=== PATIENT | male | born 1975 | race Two or more races ===

== ENCOUNTER 2019-01-30 10:39 | Inpatient (IN) | payer OTHER ==
[2019-01-30 11:05] VITALS: BMI 21.7
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
[2019-01-30] MEDS ORDERED: MENTHOL/PHENOL 1 EACH UD MM PRN (11:27)
[2019-01-30] MEDS ORDERED: MAGNESIUM CITRATE 300 ML BOTTLE PO PRN (11:27)
[2019-01-30] MEDS ORDERED: hydrOXYzine PAMOATE 25 MG CAPSULE (FP) PO PRN (11:27)
[2019-01-30] MEDS ORDERED: ACETAMINOPHEN 325 MG TABLET (FP) PO PRN (11:27)
[2019-01-30] MEDS ORDERED: BISMUTH SUBSALICYLATE 262 MG/15 ML BTL PO PRN (11:27)
[2019-01-30] MEDS ORDERED: LORazepam 1 MG TABLET PO PRN (11:27)
[2019-01-30] MEDS ORDERED: MAGNESIUM HYDROX 2400MG/30ML ORAL SUSPENSION 30 ML CUP PO PRN (11:27)
[2019-01-30] MEDS ORDERED: MAG HYDROX/AL HYDROX/SIMETH 30 ML UNIT-DOSE CUP PO PRN (11:27)
[2019-01-30] MEDS ORDERED: METHADONE HCL 10 MG TABLET PO SCH (11:30)
[2019-01-30] MEDS ORDERED: METHADONE HCL 40 MG DISPERSABLE TABLET ONE (12:23)
[2019-01-30] MEDS ORDERED: METHADONE HCL 10 MG TABLET ONE (12:23)
[2019-01-30] MEDS: METHADONE 80 MG, METHADONE 10 MG PO SCH (12:30)
[2019-01-30] MEDS: LORazepam 2 MG TABLET PO SCH ×3 (12:30→22:33)
[2019-01-30 15:55] LABS: HEMATOCRIT 40.2 % (35.4-49); HEMOGLOBIN 13.5 GM/dL (11.7-16.9); MCH 32.3 pg (25.7-33.7); MCHC 33.5 g/dl (32.0-35.9); MEAN CELL VOLUME 96.3 fl (80-96); MEAN PLT VOLUME 8.5 fl (7.5-11.1); PLATELET COUNT 171 K/MM3 (134-434); RBC 4.18 M/mm3 (4.00-5.60); RDW 14.3 % (11.9-15.9); WHITE BLOOD COUNT 5.6 K/mm3 (4.0-10.0)
[2019-01-30 16:09] LABS: ALBUMIN 3.8 g/dl (3.4-5.0); BILIRUBIN,TOTAL 0.3 mg/dL (0.2-1); BLOOD UREA NITROGEN 10.3 mg/dL (7-18); CALCIUM 8.9 mg/dL (8.5-10.1); CREATININE 0.7 mg/dL (0.55-1.3); POTASSIUM 3.5 mmol/L (3.5-5.1); TOT PROT 7.4 g/dl (6.4-8.2)
[2019-01-30] MEDS: IBUPROFEN 400 MG TABLET (FP) PO PRN (17:13)
[2019-01-30] MEDS: THIAMINE HCL 100 MG TABLET (FP) PO SCH (22:33)
[2019-01-31] MEDS ORDERED: METHADONE HCL 10 MG TABLET ONE (04:18)
[2019-01-31] MEDS ORDERED: METHADONE HCL 40 MG DISPERSABLE TABLET ONE (04:19)
[2019-01-31] MEDS: LORazepam 2 MG TABLET PO SCH ×4 (06:35→22:31)
[2019-01-31] MEDS: METHADONE 80 MG, METHADONE 10 MG PO SCH (06:35)
[2019-01-31] MEDS: PRENATAL VITAMINS W/ FOLIC ACID TABLET (FP) PO SCH (10:53)
[2019-01-31] MEDS: NICOTINE 14 MG/24 HOURS TOPICAL PATCH TD SCH (10:54)
--- NOTE | 2019-01-31 11:26 | PN ---
S CIWA - CIWA Score Nausea/Vomitin-Mild Nausea/No Vomiting Muscle Tremors: 2 Anxiety: 2 Agitation: 2 Paroxysmal Sweats: No Perspiration Orientation: 0-Oriented Tacttile Disturbances: 1-Very Mild Itch/Numbness Auditory Disturbances: 0-None Visual Disturbances: 0-None Headache: 2-Mild CIWA-Ar Total Score: 10 S Progress Note (SOAP) Subjective: alert,irritable,anxious,interrupted sleep,tremor,pain in the body,interrupted sleep Objective: 01/31/19 11:26 Vital Signs Temperature 97.9 F 01/31/19 09:31 Pulse Rate 51 L 01/31/19 09:31 Respiratory Rate 16 01/31/19 09:31 Blood Pressure 145/97 01/31/19 09:31 O2 Sat by Pulse Oximetry (%) Laboratory Last Values WBC 5.6 K/mm3 (4.0-10.0) 01/30/19 12:00 RBC 4.18 M/mm3 (4.00-5.60) 01/30/19 12:00 Hgb 13.5 GM/dL (11.7-16.9) 01/30/19 12:00 Hct 40.2 % (35.4-49) 01/30/19 12:00 MCV 96.3 fl (80-96) H 01/30/19 12:00 MCH 32.3 pg (25.7-33.7) 01/30/19 12:00 MCHC 33.5 g/dl (32.0-35.9) 01/30/19 12:00 RDW 14.3 % (11.9-15.9) 01/30/19 12:00 Plt Count 171 K/MM3 (134-434) 01/30/19 12:00 MPV 8.5 fl (7.5-11.1) 01/30/19 12:00 Sodium 140 mmol/L (136-145) 01/30/19 12:00 Potassium 3.5 mmol/L (3.5-5.1) 01/30/19 12:00 Chloride 106 mmol/L (98-107) 01/30/19 12:00 Carbon Dioxide 26 mmol/L (21-32) 01/30/19 12:00 Anion Gap 8 MMOL/L (8-16) 01/30/19 12:00 BUN 10.3 mg/dL (7-18) 01/30/19 12:00 Creatinine 0.7 mg/dL (0.55-1.3) 01/30/19 12:00 Est GFR (CKD-EPI)AfAm 135.86 01/30/19 12:00 Est GFR (CKD-EPI)NonAf 117.22 01/30/19 12:00 Random Glucose 109 mg/dL (74-106) H 01/30/19 12:00 Calcium 8.9 mg/dL (8.5-10.1) 01/30/19 12:00 Total Bilirubin 0.3 mg/dL (0.2-1) 01/30/19 12:00 AST 64 U/L (15-37) H 01/30/19 12:00 ALT 49 U/L (13-61) 01/30/19 12:00 Alkaline Phosphatase 98 U/L (45-117) 01/30/19 12:00 Total Protein 7.4 g/dl (6.4-8.2) 01/30/19 12:00 Albumin 3.8 g/dl (3.4-5.0) 01/30/19 12:00 RPR Titer Nonreactive (NONREACTIVE) 01/30/19 12:00 Assessment: 01/31/19 11:27 withdrawal symptom Plan: continue detox methadone and valium regimen
[2019-01-31] MEDS: IBUPROFEN 400 MG TABLET (FP) PO PRN (18:03)
[2019-01-31] MEDS: THIAMINE HCL 100 MG TABLET (FP) PO SCH (22:30)
[2019-02-01] MEDS ORDERED: METHADONE HCL 40 MG DISPERSABLE TABLET ONE (06:12)
[2019-02-01] MEDS: METHADONE 80 MG, METHADONE 10 MG PO SCH (06:12)
[2019-02-01] MEDS ORDERED: METHADONE HCL 10 MG TABLET ONE (06:12)
[2019-02-01] MEDS: LORazepam 1 MG TABLET PO SCH ×4 (06:13→22:38)
[2019-02-01] MEDS: NICOTINE 14 MG/24 HOURS TOPICAL PATCH TD SCH (10:31)
[2019-02-01] MEDS: PRENATAL VITAMINS W/ FOLIC ACID TABLET (FP) PO SCH (10:31)
--- NOTE | 2019-02-01 12:05 | PN ---
[facility] CIWA - CIWA Score Nausea/Vomitin-No Nausea/No Vomiting Muscle Tremors: 1-None Visible, but [place] Anxiety: 2 Agitation: 0-Normal Activity Paroxysmal Sweats: 2 Orientation: 0-Oriented Tacttile Disturbances: 2-Mild Itch/Numbness/Burn Auditory Disturbances: 0-None Visual Disturbances: 0-None Headache: 2-Mild CIWA-Ar Total Score: 9 BHS COWS - Scale Resting Pulse: 0= [place] 80 or Below Sweatin=Flushed/Facial Moisture Restless Observation: 0= Sits Still Pupil Size: 1= Pupils >than Normal Bone or Joint Aches: 2= Severe Diffuse Aches Runny Nose/ Eye Tearin= Nasal Congestion GI Upset > 30mins: 1= Stomach Cramp Tremor Observation of Outstretched Hands: 1= Tremor [place], Not Seen Yawning Observation: 0= None Anxiety or Irritability: 1=Feels Anxious/Irritable Goose Flesh Skin: 0=Smooth Skin COWS Score: 9 S Progress Note (SOAP) Subjective: interrupted sleep, sweats, shakes, headache Objective: 02/01/19 12:02 Vital Signs Temperature 97.3 F L 02/01/19 10:19 Pulse Rate 62 02/01/19 10:19 Respiratory Rate 18 02/01/19 10:19 Blood Pressure 100/72 02/01/19 10:19 O2 Sat by Pulse Oximetry (%) pt aox3 in nad ambulating well neuro-intact w/o deficit 02/01/19 12:03 Assessment: 02/01/19 12:05 withdrawal sx's Plan: cont. detox increase fluids motrin prn
[2019-02-01] MEDS: IBUPROFEN 400 MG TABLET (FP) PO PRN (15:36)
[2019-02-01] MEDS: METHOCARBAMOL 500 MG TABLET PO PRN (17:23)
[2019-02-01] MEDS: THIAMINE HCL 100 MG TABLET (FP) PO SCH (22:38)
[2019-02-01] MEDS: MELATONIN 5 MG TABLETS PO PRN (22:38)
[2019-02-02] MEDS ORDERED: LORazepam 0.5 MG TABLET PO PRN
[2019-02-02] MEDS ORDERED: METHADONE HCL 40 MG DISPERSABLE TABLET ONE (04:14)
[2019-02-02] MEDS ORDERED: METHADONE HCL 10 MG TABLET ONE (04:14)
[2019-02-02] MEDS: METHADONE 80 MG, METHADONE 10 MG PO SCH (05:17)
[2019-02-02] MEDS: LORazepam 0.5 MG TABLET PO SCH ×4 (05:18→22:39)
[2019-02-02] MEDS: METHOCARBAMOL 500 MG TABLET PO PRN ×2 (10:33→22:39)
[2019-02-02] MEDS: ACETAMINOPHEN 325 MG TABLET (FP) PO PRN (10:34)
[2019-02-02] MEDS: PRENATAL VITAMINS W/ FOLIC ACID TABLET (FP) PO SCH (10:35)
[2019-02-02] MEDS: NICOTINE 14 MG/24 HOURS TOPICAL PATCH TD SCH (10:35)
--- NOTE | 2019-02-02 13:26 | PN ---
[facility] CIWA - CIWA Score Nausea/Vomitin-Mild Nausea/No Vomiting Muscle Tremors: 1-None Visible, but [place] Anxiety: 2 Agitation: 2 Paroxysmal Sweats: 1-Minimal Palms Moist Orientation: 0-Oriented Tacttile Disturbances: 0-None Auditory Disturbances: 0-None Visual Disturbances: 0-None Headache: 4-Moderately Severe CIWA-Ar Total Score: 11 S COWS - Scale Resting Pulse: 0= [place] 80 or Below Sweatin= Chills/Flushing Restless Observation: 1= Difficult to Sit Still Pupil Size: 0= Normal to Room Light Bone or Joint Aches: 2= Severe Diffuse Aches Runny Nose/ Eye Tearin= Nasal Congestion GI Upset > 30mins: 1= Stomach Cramp Tremor Observation of Outstretched Hands: 1= Tremor [place], Not Seen Yawning Observation: 1= 1-2x During Session Anxiety or Irritability: 1=Feels Anxious/Irritable Goose Flesh Skin: 0=Smooth Skin COWS Score: 9 [facility] Progress Note (SOAP) Subjective: pt states he has a headache, wants to go to rehab when finished with detox. O: Vital Signs - 24 hr 02/01/19 02/01/19 02/02/19 17:14 22:00 00:30 Temperature 98.4 F 97.5 F L Pulse Rate 67 64 Respiratory 17 18 18 Rate Blood Pressure 111/63 131/78 02/02/19 02/02/19 02/02/19 03:30 05:56 06:27 Temperature 97.9 F Pulse Rate 58 L 58 L Respiratory 18 18 18 Rate Blood Pressure 126/77 02/02/19 09:35 Temperature 98.1 F Pulse Rate 88 Respiratory 18 Rate Blood Pressure 150/66 Laboratory Tests 01/30/19 01/30/19 01/30/19 12:00 12:00 12:00 WBC 5.6 RBC 4.18 Hgb 13.5 Hct 40.2 MCV 96.3 H MCH 32.3 MCHC 33.5 RDW 14.3 Plt Count 171 MPV 8.5 Sodium 140 Potassium 3.5 Chloride 106 Carbon Dioxide 26 Anion Gap 8 BUN 10.3 Creatinine 0.7 Est GFR (CKD-EPI)AfAm 135.86 Est GFR (CKD-EPI)NonAf 117.22 Random Glucose 109 H Calcium 8.9 Total Bilirubin 0.3 AST 64 H ALT 49 Alkaline Phosphatase 98 Total Protein 7.4 Albumin 3.8 RPR Titer Nonreactive a/p: continue detox protocols motrin/tylenol for headaches
[2019-02-02] MEDS: MELATONIN 5 MG TABLETS PO PRN (22:39)
[2019-02-02] MEDS: THIAMINE HCL 100 MG TABLET (FP) PO SCH (22:39)
[2019-02-03] MEDS ORDERED: METHADONE HCL 10 MG TABLET ONE (04:13)
[2019-02-03] MEDS ORDERED: METHADONE HCL 40 MG DISPERSABLE TABLET ONE (04:14)
[2019-02-03] MEDS ORDERED: LORazepam 0.5 MG TABLET PO ONE (05:00)
[2019-02-03] MEDS: METHADONE 80 MG, METHADONE 10 MG PO SCH (05:57)
[2019-02-03] MEDS: NICOTINE 14 MG/24 HOURS TOPICAL PATCH TD SCH (10:00)
[2019-02-03] MEDS: IBUPROFEN 400 MG TABLET (FP) PO PRN (10:00)
[2019-02-03] MEDS: PRENATAL VITAMINS W/ FOLIC ACID TABLET (FP) PO SCH (10:00)
[2019-02-03] MEDS ORDERED: IBUPROFEN 400 MG TABLET (FP) PO ONE (10:28)
[2019-02-03] MEDS: ACETAMINOPHEN 325 MG TABLET (FP) PO PRN (13:56)
--- NOTE | 2019-02-03 14:27 | PN ---
[facility] CIWA - CIWA Score Nausea/Vomitin-No Nausea/No Vomiting Muscle Tremors: None Anxiety: 2 Agitation: 2 Paroxysmal Sweats: 2 Orientation: 0-Oriented Tacttile Disturbances: 0-None Auditory Disturbances: 0-None Visual Disturbances: 0-None Headache: 0-None Present CIWA-Ar Total Score: 6 BHS COWS - Scale Resting Pulse: 0= [place] 80 or Below Sweatin= No chills or Flushing Restless Observation: 1= Difficult to Sit Still Pupil Size: 0= Normal to Room Light Bone or Joint Aches: 1= Mild Discomfort Runny Nose/ Eye Tearin= None GI Upset > 30mins: 1= Stomach Cramp Tremor Observation of Outstretched Hands: 0= None Yawning Observation: 1= 1-2x During Session Anxiety or Irritability: 2=Irritable/Anxious Goose Flesh Skin: 0=Smooth Skin COWS Score: 6 S Progress Note (SOAP) Subjective: Tremor, back pain, headache, chronic (8/10 little relief with motrin 400mg), nausea Objective: 02/03/19 14:18 Last Vital Signs Temp Pulse Resp BP Pulse Ox 98.1 F 64 16 97/61 02/03/19 14:16 02/03/19 14:16 02/03/19 14:16 02/03/19 14:16 Laboratory Tests 01/30/19 01/30/19 01/30/19 12:00 12:00 12:00 WBC 5.6 RBC 4.18 Hgb 13.5 Hct 40.2 MCV 96.3 H MCH 32.3 MCHC 33.5 RDW 14.3 Plt Count 171 MPV 8.5 Sodium 140 Potassium 3.5 Chloride 106 Carbon Dioxide 26 Anion Gap 8 BUN 10.3 Creatinine 0.7 Est GFR (CKD-EPI)AfAm 135.86 Est GFR (CKD-EPI)NonAf 117.22 Random Glucose 109 H Calcium 8.9 Total Bilirubin 0.3 AST 64 H ALT 49 Alkaline Phosphatase 98 Total Protein 7.4 Albumin 3.8 RPR Titer Nonreactive Labs reviewed: AST 64 (H) Assessment: 02/03/19 14:19 Withdrawal sxs Noted with transaminitis Plan: Continue detox Encouraged PO water intake Motrin 400mg PO x 1 dose for chronic headache Scheduled for discharge tomorrow Transaminitis, mild: most likely due to chronic alcoholism, encouraged abstinence, follow up with PCP for monitoring
[2019-02-03] MEDS: THIAMINE HCL 100 MG TABLET (FP) PO SCH (22:11)
[2019-02-03] MEDS: MELATONIN 5 MG TABLETS PO PRN (22:11)
[2019-02-03] MEDS: METHOCARBAMOL 500 MG TABLET PO PRN (22:11)
[2019-02-04] MEDS ORDERED: METHADONE HCL 10 MG TABLET ONE (04:51)
[2019-02-04] MEDS ORDERED: METHADONE HCL 40 MG DISPERSABLE TABLET ONE (04:52)
[2019-02-04] MEDS: METHADONE 80 MG, METHADONE 10 MG PO SCH (05:19)
--- NOTE | 2019-02-04 09:29 | DS ---
[facility] Detox Discharge Summary Admission Date: 01/30/19 Discharge Date: 02/04/19 - History Present History: Alcohol Dependence, Opioid Dependence - Physical Exam Results Vital Signs: Vital Signs Temperature 97.9 F 02/04/19 06:00 Pulse Rate 49 L 02/04/19 06:00 Respiratory Rate 18 02/04/19 06:00 Blood Pressure 123/67 02/04/19 06:00 O2 Sat by Pulse Oximetry (%) Pertinent Admission Physical Exam Findings: Vital Signs Temperature 97.9 F 02/04/19 06:00 Pulse Rate 49 L 02/04/19 06:00 Respiratory Rate 18 02/04/19 06:00 Blood Pressure 123/67 02/04/19 06:00 O2 Sat by Pulse Oximetry (%) Laboratory Tests 01/30/19 01/30/19 01/30/19 12:00 12:00 12:00 WBC 5.6 RBC 4.18 Hgb 13.5 Hct 40.2 MCV 96.3 H MCH 32.3 MCHC 33.5 RDW 14.3 Plt Count 171 MPV 8.5 Sodium 140 Potassium 3.5 Chloride 106 Carbon Dioxide 26 Anion Gap 8 BUN 10.3 Creatinine 0.7 Est GFR (CKD-EPI)AfAm 135.86 Est GFR (CKD-EPI)NonAf 117.22 Random Glucose 109 H Calcium 8.9 Total Bilirubin 0.3 AST 64 H ALT 49 Alkaline Phosphatase 98 Total Protein 7.4 Albumin 3.8 RPR Titer Nonreactive aaox3 ambulating no acute distress - Treatment Hospital Course: Detox Protocol Followed, Detoxed Safely, Responded well, Discharged Condition Good, Rehab Referral Accepted Patient has Accepted a Rehab Referral to: referred to inpatient rehab - Medication Discharge Medications: Ambulatory Orders Acetaminophen [Tylenol .Regular Strength -] 650 mg PO Q6H PRN #20 tablet Ibuprofen [Motrin -] 400 mg PO Q6H PRN #20 tablet 02/02/19 - Diagnosis (1) Alcohol dependence with withdrawal Current Visit: Yes Status: Chronic Qualifiers: Complication of substance-induced condition: uncomplicated Qualified Code(s ): F10.230 - Alcohol dependence with withdrawal, uncomplicated (2) Hepatitis C Current Visit: Yes Status: Chronic Qualifiers: Viral hepatitis chronicity: chronic Hepatic coma status: without hepatic coma Qualified Code(s): B18.2 - Chronic viral hepatitis C (3) Methadone maintenance therapy patient Current Visit: Yes Status: Chronic - AMA Did Patient Leave Against Medical Advice: No
[2019-02-04 09:36] VITALS: BP 106/78; PULSE 74; TEMP 96.6
== END 2019-02-04 09:52 | disposition home or self-care (01) | DRG 773 ==
LOC: YASAS 10:39 → Y6N 11:41
PROVIDERS: ADMIT Allergy & Immunology; ATTEND Allergy & Immunology
PROC: HZ2ZZZZ Detoxification Services for Substance Abuse Treatment (ICD-10-PCS; principal; 2019-01-30)
DX: F10.230 Alcohol dependence with withdrawal, uncomplicated (principal); F11.20 Opioid dependence, uncomplicated; F17.210 Nicotine dependence, cigarettes, uncomplicated; B18.2 Chronic viral hepatitis C; R51 Headache
CPT/HCPCS: 36415; 80053; 85027; 86593

== ENCOUNTER 2023-11-08 18:10 | Inpatient (IN) | payer OTHER ==
[2023-11-08 18:29] VITALS: BMI 19.4
[2023-11-08] MEDS ORDERED: ONDANSETRON *ODT* 4 MG TABLET SL PRN (18:55)
[2023-11-08] MEDS ORDERED: LOPERAMIDE HCL 2 MG CAPSULE PO PRN (18:55)
[2023-11-08] MEDS ORDERED: NALOXONE (NARCAN) HCL 4 MG/0.1 ML SPRAY NS PRN (18:55)
[2023-11-08] MEDS ORDERED: MAG HYDROX/AL HYDROX/SIMETH 30 ML UNIT-DOSE CUP PO PRN (18:55)
[2023-11-08] MEDS ORDERED: NICOTINE POLACRILEX 2 MG LOZENGE BC PRN (18:55)
[2023-11-08] MEDS ORDERED: ACETAMINOPHEN 325 MG TABLET (FP) PO PRN (18:55)
[2023-11-08] MEDS ORDERED: BENZONATATE 200 MG CAPSULE PO PRN (18:55)
[2023-11-08] MEDS ORDERED: IBUPROFEN 400 MG TABLET (FP) PO PRN (18:55)
[2023-11-08] MEDS ORDERED: BISMUTH SUBSALICYLATE 524 MG/30 ML PO PRN (18:55)
[2023-11-08] MEDS ORDERED: IBUPROFEN 600 MG TABLET (FP) PO PRN (18:55)
[2023-11-08] MEDS ORDERED: P-EPHED 60MG/TRIPROLIDI 2.5MG TABLET PO PRN (18:55)
[2023-11-08] MEDS ORDERED: NICOTINE POLACRILEX 2 MG GUM BUC PRN (18:55)
[2023-11-08] MEDS ORDERED: MAGNESIUM HYDROX 2400MG/30ML ORAL SUSPENSION 30 ML CUP PO PRN (18:55)
[2023-11-08] MEDS ORDERED: BENZOCAINE/MENTHOL (CHLORASEPTIC ) LOZENGE MM PRN (18:55)
[2023-11-08] MEDS ORDERED: NALOXONE HCL 0.4 MG/ML VIAL IM PRN (18:55)
[2023-11-08] MEDS ORDERED: DICYCLOMINE HCL 10 MG CAPSULE PO PRN (18:55)
[2023-11-08] MEDS ORDERED: guaiFENesin 600 MG TABLET.ER (FP) PO PRN (18:55)
[2023-11-08] MEDS ORDERED: POLYETHYLENE GLYCOL (HEALTHYLAX) 3350 17 GM PACKET PO PRN (18:55)
[2023-11-08] MEDS ORDERED: ALBUTEROL SO4 HFA INHALER IH PRN (21:16)
[2023-11-08] MEDS: MELATONIN 5 MG TABLETS PO SCH (22:46)
[2023-11-08] MEDS: THIAMINE 100 MG TABLET PO SCH (22:47)
[2023-11-08] MEDS: hydrOXYzine PAMOATE 25 MG CAPSULE (FP) PO PRN (22:47)
[2023-11-08] MEDS: METHOCARBAMOL 500 MG TABLET PO PRN (22:47)
[2023-11-09] MEDS ORDERED: chlordiazePOXIDE HCL 25 MG CAPSULE PO PRN (07:51)
[2023-11-09] MEDS: methaDONE HCL 10 MG TABLET (FOR DETOX USE ONLY) PO ONE ×2 (09:04→19:07)
[2023-11-09] MEDS: BUPRENORPHINE/NALOXONE 0.5 MG/0.125 MG FILM SL ONE ×2 (09:04→22:53)
[2023-11-09] MEDS: chlordiazePOXIDE HCL 25 MG CAPSULE PO ONE (09:07)
[2023-11-09] MEDS: chlordiazePOXIDE HCL 25 MG CAPSULE PO SCH (10:58)
[2023-11-09] MEDS: PRENATAL VITAMINS W/ FOLIC ACID TABLET (FP) PO SCH (10:58)
[2023-11-09] MEDS: cloNIDine HCL 0.1 MG TABLET PO SCH (10:58)
[2023-11-09 11:18] LABS: HEMATOCRIT 39.7 % (35.4-49); HEMOGLOBIN 13.2 GM/dL (11.7-16.9); MCH 31.2 pg (25.7-33.7); MCHC 33.2 g/dl (32.0-35.9); MEAN PLT VOLUME 8.4 fl (7.5-11.1); PLATELET COUNT 154 10^3/uL (134-434); RBC 4.22 M/mm3 (4.00-5.60); RDW 14.1 % (11.9-15.9)
[2023-11-09 11:45] LABS: POTASSIUM 4.2 mmol/L (3.5-5.1)
[2023-11-09 12:02] LABS: CALCIUM 8.9 mg/dL (8.5-10.1)
[2023-11-09 12:03] LABS: ALBUMIN 3.1 g/dl (3.4-5.0); BLOOD UREA NITROGEN 13.1 mg/dL (7-18)
[2023-11-09 12:06] LABS: CREATININE 0.7 mg/dL (0.55-1.3)
[2023-11-09 12:07] LABS: BILIRUBIN,TOTAL 0.4 mg/dL (0.2-1); TOT PROT 6.4 g/dl (6.4-8.2)
[2023-11-10] MEDS: BUPRENORPHINE/NALOXONE 0.5 MG/0.125 MG FILM SL SCH (09:59)
[2023-11-10 20:35] VITALS: RESP 16
[2023-11-11] MEDS: chlordiazePOXIDE HCL 25 MG CAPSULE PO SCH (05:55)
[2023-11-11 09:26] VITALS: BP 125/85; PULSE 75; TEMP 97.7
[2023-11-11] MEDS: methaDONE HCL 10 MG TABLET (FOR DETOX USE ONLY) PO ONE (10:39)
[2023-11-11] MEDS: BUPRENORPHINE/NALOXONE 2 MG/0.5 MG FILM PACKET SL SCH (10:40)
[2023-11-12] MEDS ORDERED: chlordiazePOXIDE HCL 10 MG CAPSULE PO PRN
[2023-11-12] MEDS ORDERED: chlordiazePOXIDE HCL 10 MG CAPSULE PO SCH (05:00)
[2023-11-12] MEDS ORDERED: BUPRENORPHINE/NALOXONE 4 MG/1 MG FILM PACKET SL SCH (10:00)
[2023-11-13] MEDS ORDERED: chlordiazePOXIDE HCL 10 MG CAPSULE PO SCH (05:00)
[2023-11-13] MEDS ORDERED: BUPRENORPHINE/NALOXONE 8 MG/2 MG FILM PACKET SL SCH (10:00)
[2023-11-13] MEDS ORDERED: methaDONE HCL 10 MG TABLET (FOR DETOX USE ONLY) PO ONE (10:00)
[2023-11-14] MEDS ORDERED: chlordiazePOXIDE HCL 10 MG CAPSULE PO ONE (05:00)
[2023-11-14] MEDS ORDERED: BUPRENORPHINE/NALOXONE 8 MG/2 MG FILM PACKET SL SCH (10:00)
== END 2023-11-11 10:54 | disposition left against medical advice (07) | DRG 770 ==
LOC: YASAS 18:10 → Y3N 18:48
PROVIDERS: ADMIT Allergy & Immunology; ATTEND Surgery
PROC: HZ2ZZZZ Detoxification Services for Substance Abuse Treatment (ICD-10-PCS; principal; 2023-11-08)
DX: F11.23 Opioid dependence with withdrawal (principal); F10.230 Alcohol dependence with withdrawal, uncomplicated; F14.20 Cocaine dependence, uncomplicated; F12.20 Cannabis dependence, uncomplicated; F17.210 Nicotine dependence, cigarettes, uncomplicated; J45.909 Unspecified asthma, uncomplicated; Z86.19 Personal history of other infectious and parasitic diseases
CPT/HCPCS: 36415; 80053; 80305; 80307; 85027; 86780